=== PATIENT | female | born 1950 | race Caucasian/White ===

== ENCOUNTER → 2016-06-04 | Day surgery (SDC) | payer MEDICARE ==
[2016-06-04 12:07] LABS: CREATININE 1.1 mg/dL (0.5-1.0); POTASSIUM 3.8 mmol/L (3.5-5.1)
== END | disposition home or self-care (01) ==
LOC: FAS 10:53
PROVIDERS: Anesthesiology
DX: K80.10 Calculus of gallbladder with chronic cholecystitis without obstruction (principal); E03.9 Hypothyroidism, unspecified; I10 Essential (primary) hypertension; Z90.49 Acquired absence of other specified parts of digestive tract; Z88.0 Allergy status to penicillin; Z91.013 Allergy to seafood; Z88.7 Allergy status to serum and vaccine; Z91.09 Other allergy status, other than to drugs and biological substances; Z87.891 Personal history of nicotine dependence; Z80.1 Family history of malignant neoplasm of trachea, bronchus and lung; Z79.899 Other long term (current) drug therapy; Z98.890 Other specified postprocedural states
CPT/HCPCS: 36415; 80048; 88304; J1170; J2405; J2704; J2710; J3010

== ENCOUNTER 2020-12-21 11:53 | Emergency (ER) | payer MEDICARE | END 2020-12-21 15:19 | disposition home or self-care (01) | LOC: FER 11:53 | DX: S02.2XXA Fracture of nasal bones, initial encounter for closed fracture (principal); S00.31XA Abrasion of nose, initial encounter; I10 Essential (primary) hypertension; Z88.7 Allergy status to serum and vaccine; Z88.6 Allergy status to analgesic agent; Z88.8 Allergy status to other drugs, medicaments and biological substances; Z88.0 Allergy status to penicillin; Z91.013 Allergy to seafood; W10.9XXA Fall (on) (from) unspecified stairs and steps, initial encounter; Y92.009 Unspecified place in unspecified non-institutional (private) residence as the place of occurrence of the external cause | CPT/HCPCS: 70450; 70486; 72125 ==

== ENCOUNTER → 2021-04-17 | Day surgery (SDC) | payer MEDICARE ==
[~2021-04-17] VITALS: Ht 162.6 cm; Wt 93.0 kg
[~2021-04-17] MED LIST: AVAPRO150 MG PO; BACLOFEN 10MG T10 MG PO; COREG 6.25MG6.25 MG PO; LASIX20 MG PO; LEVOXYL175 MCG PO; MULTIVITAMIN1 EACH PO; NEURONTIN300 MG PO; NORVASC 10MG TA10 MG PO; PERCOCET 5-3251 EACH PO; PROBIOTIC1 EAC1 PO; SERTRALINE HCL25 MG PO
[2021-04-17 08:15] LABS: BUN/CREAT RATIO (CALC) 14.7 RATIO; CREATININE 1.02 mg/dL (0.51-0.95); POTASSIUM 4.5 mmol/L (3.5-5.1)
== END | disposition home or self-care (01) ==
LOC: FAS 06:43
PROVIDERS: Anesthesiology
DX: C56.9 Malignant neoplasm of unspecified ovary (principal); K74.60 Unspecified cirrhosis of liver; R18.8 Other ascites; I10 Essential (primary) hypertension; E03.9 Hypothyroidism, unspecified; Z88.0 Allergy status to penicillin; Z91.013 Allergy to seafood; Z88.8 Allergy status to other drugs, medicaments and biological substances; Z91.048 Other nonmedicinal substance allergy status; Z90.49 Acquired absence of other specified parts of digestive tract; Z87.891 Personal history of nicotine dependence
CPT/HCPCS: 36415; 71045; 76000; 80048; 93005; C1788; J1100; J1644; J1956; J2250; J2405; J2704; J3010; J7120

== ENCOUNTER 2021-12-25 21:34 | Day surgery (SDCO) | payer MEDICARE ==
[~2021-12-25] VITALS: Ht 162.6 cm; Wt 94.4 kg
[~2021-12-25 21:34] MED LIST changes: +ACETAMINOPHEN500 M1 PO; +COLACE100 MG PO; +IBUPROFEN400 MG PO; +MIRALAX17 GM PO; +OXY-IR 5MG5 MG PO; +PHENERGAN25 M1 PO
[2021-12-25 22:20] LABS: BASOPHIL 0.1 % (0-2); EOSINOPHIL 0.3 % (0-7); HCT 26.5 % (37.0-47.0); HGB 8.5 g/dl (12.5-16.0); LYMPHOCYTE 4.2 % (15-48); MCH 32.9 pg (25.0-31.0); MCHC 32.1 g/dL (32.0-36.0); MCV 102.7 fL (78.0-100.0); MONOCYTE 9.7 % (0-12); NEUTROPHIL 85.2 % (41-80); NRBC 0; PLT 249 K/uL (150-400); RBC 2.58 M/uL (4.20-5.40); RDW 16.2 % (11.5-14.0); WBC 12.3 K/uL (4.0-10.5)
[2021-12-25 22:23] LABS: ALBUMIN 2.8 g/dL (3.4-5.0); BILIRUBIN - TOTAL 0.8 mg/dL (0.2-1.0); BUN/CREAT RATIO (CALC) 28.1 RATIO; CREATININE 0.89 mg/dL (0.51-0.95); GLOBULIN (CALCULATION) 3.8 g/dL; POTASSIUM 3.8 mmol/L (3.5-5.1); TOTAL PROTEIN 6.6 g/dL (6.4-8.2)
[2021-12-25 22:24] LABS: LACTIC ACID 0.7 mmol/L (0.4-1.9)
[2021-12-26 00:38] LABS: BILIRUBIN NEGATIVE (NEGATIVE); BLOOD NEGATIVE Ery/uL (NEGATIVE); CLARITY CLEAR (CLEAR); COLOR YELLOW (YELLOW); GLUCOSE (U) NORMAL (NORMAL); LEUKOCYTES NEGATIVE Leu/uL (NEGATIVE); NITRITE NEGATIVE (NEGATIVE); PROTEIN NEGATIVE (NEGATIVE); SPECIFIC GRAVITY <=1.005 (1.001-1.030); UROBILINOGEN 0.2 mg/dL (0.2-1.0); pH 5.5 (5.0-9.0)
[2021-12-26] MEDS ORDERED: POLYETHYLENE2500 G1 PO (02:12)
[2021-12-26 02:43] LABS: RETICULOCYTE COUNT 1.9 % (1.0-2.0)
--- NOTE | 2021-12-26 04:37 | NUR ---
ORTHOSTATIC VITALS 0339 LYING BP-134/62 HR- 80 0341 SITTING BP- 135/65 HR-91 0342 STANDING BP- 134/60 HR 92 RESULTS COMMUNICATED TO HOSPITALIST (KATHY)
[2021-12-26 06:52] LABS: HCT 23.9 % (37.0-47.0); HGB 7.8 g/dl (12.5-16.0); MCH 33.9 pg (25.0-31.0); MCHC 32.6 g/dL (32.0-36.0); MCV 103.9 fL (78.0-100.0); RBC 2.3 M/uL (4.20-5.40); WBC 10.4 K/uL (4.0-10.5)
[2021-12-26 07:02] LABS: IRON % SATURATION 8.1 %SAT (20-50)
[2021-12-26 07:45] LABS: BUN/CREAT RATIO (CALC) 25.3 RATIO; CREATININE 0.79 mg/dL (0.51-0.95); POTASSIUM 3.4 mmol/L (3.5-5.1)
[2021-12-26] MEDS ORDERED: CITRATE OF MAG296 ML PO (11:16)
== END 2021-12-26 13:35 | disposition home or self-care (01) ==
LOC: FER 21:34 → FMS 12-26 00:44
PROVIDERS: Internal Medicine; Nurse Practitioner Acute Care; ADMIT Internal Medicine
DX: R53.1 Weakness (principal); I12.9 Hypertensive chronic kidney disease with stage 1 through stage 4 chronic kidney disease, or unspecified chronic kidney disease; N18.2 Chronic kidney disease, stage 2 (mild); E78.5 Hyperlipidemia, unspecified; E66.9 Obesity, unspecified; E87.1 Hypo-osmolality and hyponatremia; J98.11 Atelectasis; K59.00 Constipation, unspecified; E03.9 Hypothyroidism, unspecified; C79.60 Secondary malignant neoplasm of unspecified ovary; D64.9 Anemia, unspecified
CPT/HCPCS: 36415; 70450; 71045; 71275; 80048; 80053; 81003; 82150; 82607; 82728; 83540; 83550; 83605; 84145; 84443; 84484; 85025; 87040; 93005; 94010; 94760; 97162; G0378; J0692; J1642; J1650; J7030; Q9967